=== PATIENT | female | born 1980 | race Two or more races ===

== ENCOUNTER 2023-12-15 12:28 | Emergency (ER) | payer MEDICARE, OTHER ==
[~2023-12-15] VITALS: Ht 170.2 cm; Wt 68.0 kg
[2023-12-15 13:00] VITALS: BP 110/74; PULSE 92; RESP 16; O2SAT 98
[2023-12-15 16:39] LABS: Basophils # (auto) 0 10 ^3/uL (0-0.2); Eosinophils # (auto) 0.2 10 ^3/uL (0-0.8); Lymphocytes # (auto) 1.1 10 ^3/uL (0.4-5.4); Neutrophils # (auto) 6.7 10 ^3/uL (1.6-8.6); White Blood Cell 8.6 10^3/uL (4.4-10.8)
[2023-12-15 16:42] LABS: Basophils % (auto) 0.2 % (0.0-2.0); Eosinophils % (auto) 2.4 % (0.0-7.0); Hematocrit 36.8 % (36.0-46.0); Lymphocytes % (auto) 13.1 % (10.0-50.0); Mean Corpuscular Hemoglobin 25.4 pg (28.0-32.0); Mean Corpuscular Hgb Conc. 32.6 g/dL (32.0-36.0); Mean Corpuscular Volume 78.1 fL (80.0-100.0); Monocytes # (auto) 0.6 10 ^3/uL (0-1.3); Monocytes % (auto) 6.7 % (0.0-12.0); Neutrophils % (auto) 77.6 % (37.0-80.0); Platelet Count (auto) 182 10^3/uL (140-450); Red Blood Cells 4.71 10^6/uL (4.0-5.20)
[2023-12-15 16:53] LABS: Anion Gap 10 (5-15); Calcium 10.1 mg/dL (8.7-10.4); Carbon Dioxide 28 mmol/L (20-31); Chloride 103 mmol/L (98-107); Potassium 3.7 mmol/L (3.5-5.1); Sodium 141 mmol/L (136-145)
[2023-12-15 16:58] LABS: Blood Alcohol < 3.0 mg/dL (<10)
[2023-12-15 16:59] LABS: BUN/Creatinine Ratio 12.7 (10.0-20.0); Blood Urea Nitrogen 9 mg/dL (9-23); Glucose 102 mg/dL (74-106)
[2023-12-15 18:15] LABS: Urine Bacteria None Seen /hpf (None Seen)
[2023-12-15 18:53] LABS: Urine Blood Negative /uL (Negative); Urine Budding Yeast OCCASIONAL /hpf (None Seen); Urine Clarity Turbid (Clear); Urine Color Yellow (Yellow); Urine Hyaline Cast FEW /lpf (0 - 2); Urine Mucus FEW (None Seen); Urine Protein, UAD TRACE (Negative); Urine Specific Gravity 1.027 (1.001-1.035); Urine Urobilinogen Normal (Negative); Urine WBC 26 /hpf (0 - 5); Urine pH 5.5 (5.0-9.0)
[2023-12-15 18:56] LABS: Amphetamine Screen, Urine Pos (NEGATIVE); Barbiturate Scree,Urine Neg (NEGATIVE); Benzodiazephine Screen, Urine Neg (NEGATIVE); Cocaine Screen, Urine Neg (NEGATIVE); Opiate Scree,Urine Neg (NEGATIVE)
[2023-12-15 18:57] LABS: Phencyclidine Screen, Urine Neg (NEGATIVE)
[2023-12-15 19:50] LABS: Cannabinoid Screen, Urine Neg (NEGATIVE)
== END 2023-12-15 22:42 | disposition home or self-care (01) ==
LOC: EDBD 12:28 → ER 12:41
DX: F20.9 Schizophrenia, unspecified (principal); F15.10 Other stimulant abuse, uncomplicated; Z88.0 Allergy status to penicillin; Z88.2 Allergy status to sulfonamides; Z91.040 Latex allergy status
CPT/HCPCS: 36415; 71045; 80048; 80307; 80320; 81001; 85025